=== PATIENT | male | born 1945 | race Caucasian/White ===

== ENCOUNTER → 2017-05-20 | Outpatient (CLI) | payer MEDICARE, BC ==
--- NOTE | 2017-05-20 23:50 | HKNOTE ---
DATE OF SERVICE: 05/20/2017 CHIEF COMPLAINT: Pain in the right shoulder. HISTORY: 1. Pain in the right shoulder. 2. He has had pain in the right shoulder for 3 months, getting progressively worse. 3. Two weeks ago, he had an injection to the shoulder by a sports medicine orthopedic doctor, Lianet Olson. He was also taking Celebrex. Nothing helped. Following this injection, he still continued to have the pain. He describes it as a mild pain, which he has in the right upper arm muscles rathe r than in the shoulder. The pain is aggravated by elevating and lifting his arm above shoulder leve l. He has also difficulty putting on his jacket. He also has difficulty leaning forwards while wor waqar and stretching out his arm. His general health has been satisfactory. He has no major medical issues. PHYSICAL EXAMINATION: GENERAL: Healthy adult male, age 72. VITAL SIGNS: Height 6 feet 1 inch, weight 190 pounds. He is right-handed. MUSCULOSKELETAL: Examination of the right shoulder reveals no deformity and no tenderness. There i s some slight tenderness over the right upper arm. Shoulder motion, abduction, between 60 and 120 degrees of abduction, he experiences pain. The pain increases all the way to full abduction. He has a full and complete range of shoulder abduction of 180 degrees, flexion 180 degrees, external rotation 80 degrees, internal rotation 60 degrees with pa in in the upper arm. IMAGIN. X-rays of the right shoulder, internal and external AP views, show no bony abnormalities, no fra ctures, no dislocations and no soft tissue abnormalities. 2. Subacromial bursitis, right shoulder. 3. 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 TREATMENT: He was given a subacromial injection of 1% Xylocaine with 80 mg of Depo-Medrol and 2 mL of 0.25% Marcaine. This did not relieve the shoulder and upper arm pain. It was then decided that maybe his problem is in the shoulder joint, and the shoulder joint was injected with a similar amoun t of material with not much relief, possibly 40% relief of his shoulder pain. He is advised to continue exercising his shoulder and if at some stage, his pain persists, he may be a candidate for an MRI scan of the right shoulder and right upper arm. Dictated By: SINA Avery MD, CMS/RODOLFO Conf#: [id number] [facility]#: [id number]
--- NOTE | 2017-05-21 09:25 | RADRPT ---
PROCEDURE: XR Shoulder. CLINICAL INDICATION: Right shoulder pain TECHNIQUE: Three views of the right shoulder are available for review. COMPARISON: None available FINDINGS: The osseous structures, articular spaces, and surrounding soft tissues of the left shoulder are int act. No acute fracture or dislocation is seen. No radiopaque foreign body is identified. The acrom ioclavicular joint is mildly degenerated. The visualized portions of the right clavicle and upper l eft rib cage are equally unremarkable. IMPRESSION: 1. Mild AC arthrosis. 2. No acute fracture or dislocation is seen. 3. No evidence for erosive change or other evidence of inflammatory arthritis. RPTAT: XX .Mike Choe MD, Date Time Electronically viewed and signed by .Mike Choe MD, on 05/21/2017 09:25 .T/
== END | disposition home or self-care (01) ==
LOC: EDBD 09:45 → HKI 10:12
PROVIDERS: ATTEND Orthopaedic Surgery
DX: M75.51 Bursitis of right shoulder (principal)
CPT/HCPCS: 20610; 73030; G0463